=== PATIENT | female | born 1965 | race Hispanic/Latino ===

== ENCOUNTER → 2017-06-27 | Day surgery (SDC) | payer BC ==
[~2017-06-27] MED LIST: ALENDRONATE SOD70 MG PO; FENTANYL CITRATE/PF 100MCG/2 ML INJ ONE; GLUCAGON FOR INJ 1 MG VIAL ONE; HYOSCYAMINE SULFATE 0.5 MG/ML AMP ONE; LIDOCAINE HCL 2% LOCAL INJ 5 ML SDV VIAL INJ ONE; LISINOPRIL10 MG PO; MIDAZOLAM HCL 2 MG/2 ML VIAL ONE; PROPOFOL IV EMULSION 10 MG/ML 50 ML VIAL ONE
--- NOTE | 2017-06-27 11:16 | Operative Report ---
DATE OF PROCEDURE: June 27, 2017 REFERRING PHYSICIAN: Dara Quinteros MD PROCEDURE PERFORMED: Colonoscopy and polypectomy. INDICATIONS FOR COLONOSCOPY: Colorectal cancer screening. MEDICATION: Patient was done under MAC. Please see anesthesiologist's note. PROCEDURE: With the patient in the left lateral decubitus position, the flexible fiberoptic Olympus colonoscope was inserted into the rectum with ease and advanced all the way to the cecum. The scope was then withdrawn slowly. Mucosa overlying the cecum appeared to be within normal limits. One polyp was hot biopsied from the ascending colon. Transverse colon appeared to be within normal limits. One polyp was snared from the descending colon. Sigmoid appeared to be as well as the rectum within normal limits. The scope was then retroflexed into the distal rectum. Small internal hemorrhoids were noted, none of which was actively bleeding. The scope was then straightened out. The rectosigmoid area as well as the distal rectal area were decompressed. Scope was subsequently withdrawn. Patient tolerated the procedure well. IMPRESSION 1. Ascending colon polyp, hot biopsied. 2. Descending colon polyp, snared. 3. Internal hemorrhoids, none actively bleeding. PLAN: Follow up histology. Initiate high-fiber, low-fat diet. Initiate high-fiber supplement. Patient will need a followup colonoscopy in 3 years. Job#: [id number] cc:DARA QUINTEROS MD
== END | disposition home or self-care (01) ==
LOC: OR 08:49
PROVIDERS: ATTEND Internal Medicine Gastroenterology
DX: Z12.11 Encounter for screening for malignant neoplasm of colon (principal); K63.5 Polyp of colon; I10 Essential (primary) hypertension; K64.8 Other hemorrhoids; M81.0 Age-related osteoporosis without current pathological fracture; Z01.810 Encounter for preprocedural cardiovascular examination; Z68.29 Body mass index [BMI] 29.0-29.9, adult
CPT/HCPCS: 45384; 45385; 93005; J1610; J1980; J2001; J2250